=== PATIENT | female | born 1965 | race Caucasian/White ===

== ENCOUNTER 2024-05-12 12:42 | Inpatient (IN) | payer OTHER ==
[2024-05-12 13:19] VITALS: BMI 30.4
[2024-05-12] MEDS ORDERED: MAG HYDROX/AL HYDROX/SIMETH 30 ML UNIT-DOSE CUP PO PRN (14:17)
[2024-05-12] MEDS ORDERED: NALOXONE (NARCAN) HCL 4 MG/0.1 ML SPRAY NS PRN (14:17)
[2024-05-12] MEDS ORDERED: MAGNESIUM HYDROX 2400MG/30ML ORAL SUSPENSION 30 ML CUP PO PRN (14:17)
[2024-05-12] MEDS ORDERED: BISMUTH SUBSALICYLATE 262 MG/15 ML BTL PO PRN (14:17)
[2024-05-12] MEDS ORDERED: BENZOCAINE/MENTHOL (CHLORASEPTIC ) LOZENGE MM PRN (14:17)
[2024-05-12] MEDS ORDERED: NICOTINE POLACRILEX 2 MG GUM BUC PRN (14:17)
[2024-05-12] MEDS ORDERED: ACETAMINOPHEN 325 MG TABLET (FP) PO PRN (14:17)
[2024-05-12] MEDS ORDERED: IBUPROFEN 600 MG TABLET (FP) PO PRN (14:17)
[2024-05-12] MEDS ORDERED: DICYCLOMINE HCL 10 MG CAPSULE PO PRN (14:17)
[2024-05-12] MEDS ORDERED: hydrOXYzine PAMOATE 25 MG CAPSULE (FP) PO PRN (14:17)
[2024-05-12] MEDS ORDERED: guaiFENesin 600 MG TABLET.ER (FP) PO PRN (14:17)
[2024-05-12] MEDS ORDERED: POLYETHYLENE GLYCOL (HEALTHYLAX) 3350 17 GM PACKET PO PRN (14:17)
[2024-05-12] MEDS ORDERED: IBUPROFEN 400 MG TABLET (FP) PO PRN (14:17)
[2024-05-12] MEDS ORDERED: chlordiazePOXIDE HCL 25 MG CAPSULE ONE (15:09)
[2024-05-12] MEDS: chlordiazePOXIDE HCL 25 MG CAPSULE PO PRN (15:14)
[2024-05-12] MEDS: chlordiazePOXIDE HCL 25 MG CAPSULE PO SCH (17:02)
[2024-05-12] MEDS: MELATONIN 5 MG TABLETS PO SCH (22:36)
[2024-05-12] MEDS: GABAPENTIN 400 MG CAPSULE PO SCH (22:36)
[2024-05-12] MEDS: THIAMINE 100 MG TABLET PO SCH (22:36)
[2024-05-12] MEDS: ATORVASTATIN CA 10 MG TABLET (FP) PO SCH (22:37)
[2024-05-12] MEDS: SULFAMETHOXAZOLE/TRIMETHOPRIM 800MG/160MG D.S. TABLET PO SCH (22:37)
[2024-05-13] MEDS: TOPIRAMATE 100 MG TABLET PO SCH (09:21)
[2024-05-13] MEDS: SERTRALINE HCL 50 MG TABLET (FP) PO SCH (09:21)
[2024-05-13] MEDS: PRENATAL VITAMINS W/ FOLIC ACID TABLET (FP) PO SCH (09:21)
[2024-05-13] MEDS: NICOTINE 14 MG/24 HOURS TOPICAL PATCH TD SCH (09:22)
[2024-05-13] MEDS: METHOCARBAMOL 500 MG TABLET PO PRN (10:23)
[2024-05-13 13:27] LABS: HEMATOCRIT 40.2 % (32.4-45.2); HEMOGLOBIN 13.7 GM/dL (10.7-15.3); MCH 34.2 pg (25.7-33.7); MCHC 33.9 g/dl (32.0-36.0); MEAN CELL VOLUME 100.8 fl (80-96); MEAN PLT VOLUME 10.4 fl (7.5-11.1); PLATELET COUNT 91 10^3/uL (134-434); RBC 3.99 M/mm3 (3.60-5.2); RDW 15.7 % (11.6-15.6); WHITE BLOOD COUNT 5.5 K/mm3 (4.0-10.0)
[2024-05-13 13:28] LABS: POTASSIUM 3.9 mmol/L (3.5-5.1)
[2024-05-13 14:02] LABS: ALBUMIN 3.9 g/dl (3.4-5.0); BLOOD UREA NITROGEN 10.6 mg/dL (7-18); CALCIUM 8.9 mg/dL (8.5-10.1)
[2024-05-13 14:04] LABS: CREATININE 0.7 mg/dL (0.55-1.3)
[2024-05-13] MEDS ORDERED: NALOXONE (NYS OPIOID OVERDOSE PROGRAM) 4 MG/0.1 ML SPRAY NS PRN (14:24)
[2024-05-13 15:07] LABS: BILIRUBIN,TOTAL 0.7 mg/dL (0.2-1)
[2024-05-13] MEDS: LOPERAMIDE HCL 2 MG CAPSULE PO PRN (17:13)
[2024-05-13] MEDS: BENZONATATE 200 MG CAPSULE PO PRN (19:04)
[2024-05-13] MEDS: ALBUTEROL SO4 HFA INHALER IH PRN (19:04)
[2024-05-13] MEDS: NALOXONE (NYS OPIOID OVERDOSE PROGRAM) 4 MG/0.1 ML SPRAY NS ONE (22:58)
[2024-05-14] MEDS: chlordiazePOXIDE HCL 25 MG CAPSULE PO SCH (05:35)
[2024-05-14 09:32] VITALS: TEMP 97.6
[2024-05-14] MEDS: ONDANSETRON *ODT* 4 MG TABLET SL PRN (11:24)
[2024-05-14] MEDS: cloNIDine HCL 0.1 MG TABLET PO ONE (12:49)
[2024-05-14] MEDS: TRIMETHOBENZAMIDE HCL 200MG/2ML INJ IM ONE (12:58)
[2024-05-14 13:32] VITALS: RESP 18
[2024-05-14 13:54] VITALS: BP 152/87; PULSE 83
[2024-05-15] MEDS ORDERED: chlordiazePOXIDE HCL 10 MG CAPSULE PO PRN
[2024-05-15] MEDS ORDERED: chlordiazePOXIDE HCL 10 MG CAPSULE PO SCH (05:00)
[2024-05-16] MEDS ORDERED: chlordiazePOXIDE HCL 10 MG CAPSULE PO SCH (05:00)
[2024-05-17] MEDS ORDERED: chlordiazePOXIDE HCL 10 MG CAPSULE PO ONE (05:00)
== END 2024-05-14 14:01 | disposition left against medical advice (07) | DRG 770 ==
LOC: YASAS 12:42 → Y6N 14:56
PROVIDERS: ADMIT Allergy & Immunology; ATTEND Surgery
PROC: HZ2ZZZZ Detoxification Services for Substance Abuse Treatment (ICD-10-PCS; principal; 2024-05-12)
DX: F10.230 Alcohol dependence with withdrawal, uncomplicated (principal); F17.210 Nicotine dependence, cigarettes, uncomplicated; F31.9 Bipolar disorder, unspecified; F19.282 Other psychoactive substance dependence with psychoactive substance-induced sleep disorder; F41.1 Generalized anxiety disorder; F32.A Depression, unspecified; E78.2 Mixed hyperlipidemia; G62.9 Polyneuropathy, unspecified; J44.9 Chronic obstructive pulmonary disease, unspecified; Z88.0 Allergy status to penicillin; Z88.8 Allergy status to other drugs, medicaments and biological substances
CPT/HCPCS: 36415; 80053; 80305; 80307; 85027; 86780; 93005; 93010; Q0162